=== PATIENT | male | born 1960 | race Two or more races ===

== ENCOUNTER 2019-11-19 05:41 | Day surgery (SDC) | payer OTHER ==
--- NOTE | 2019-11-18 14:32 | Pre-Procedure Note/Attestation ---
Pre-Procedure Note/Attestation Complete Prior to Procedure Planned Procedure: bilateral Procedure Narrative: 1. Septoplasty 2. Submucous resection right inferior turbinate 3. Submucous resection left inferior turbinate Indications for Procedure Pre-Operative Diagnosis: Nasal airway obstruction Attestation I attest that I discussed the nature of the procedure; its benefits; risks and complications; and alternatives (and the risks and benefits of such alternatives), prior to the procedure, with the patient (or the patient's legal uniforms sales representative). I attest that, if there was a reasonable possibility of needing a blood transfusion, the patient (or the patient's legal uniforms sales representative) was given the [facility] standardized written summary, pursuant to the [place] [employer] Blood Safety Act ([place] Health and Safety Code # 1645, as amended). I attest that I re-evaluated the patient just prior to the surgery and that there has been no change in the patient's H&P by Dr. Krystian Tracy and reviewed by me. No sig. changes and stable for surgery. Elder Cancino MD Nov 18, 2019 14:32
--- NOTE | 2019-11-18 14:34 | Brief Operative Note ---
Immediate Post Operative Note Operative Note Chief Complaint: Nasal airway obstruction Pre-op Diagnosis: Nasal airway obstruction Procedure: 1. Septoplasty 2. Submucous resection right inferior turbinate 3. Submucous resection left inferior turbinate Post-op Diagnosis: same as pre-op Surgeon: Dr. Elder Cancino Site Inspector: none Additional Surgeons: none Anesthesiologist: Luis Coates MD Anesthesia: general Specimen: none Complications: none Condition: stable Fluids: D5LR Estimated Blood Loss: volume - 25 cc Drains: none Packing: Sino-nasal gel Tourniquet time: 0 Implant(s) used?: No Elder Cancino MD Nov 18, 2019 14:34
--- NOTE | 2019-11-18 14:37 | Discharge Instructions ---
Discharge Instructions Discharge Instructions Follow up with: Dr. Cancino next week at his [facility] Diet: regular Resume Normal Activity?: No Activity: light activity Pneumonia Vaccine: pt refused vaccine Influenza Vaccine (Nov to Apr): pt refused vaccine Follow Up Orders Pt has printed instructions reviewed and given to him at his pre op visit last week. Return to Work/School on: Dec 03, 2019 Special Instructions ice to face x 48 hours For Surgical Patients Dressing Care: may change May shower: Yes For Congestive Heart Failure Reminder Report to your physician any weight gain of 5 pounds or more in one week. Elder Cancino MD Nov 18, 2019 14:37
[2019-11-19] VITALS (10 sets, daily range): BP systolic 123–138; BP diastolic 78–89
[~2019-11-19] VITALS: Ht 177.8 cm; Wt 79.4 kg
[~2019-11-19 05:41] MED LIST: AMLODIPINE BESY10 MG ORAL; AMOXICILLIN500 MG ORAL; EDARBI80 MG ORAL; GLYXAMBI 10 MG1 EACH PO; JANUMET XR 1001 EACH ORAL; NORCO 5-325 TA1 EAC1 ORAL
[2019-11-19] MEDS ORDERED: Cocaine HCl 4% 4ml vial TOPIC ONE (07:10)
[2019-11-19] MEDS ORDERED: EPINEPHrine 1mg/1ml Amp ONE (07:10)
[2019-11-19] MEDS ORDERED: Lidocaine 1% 10mg/ml/Epi 0.005mg/ml 30ml vial INJ ONE (07:11)
[2019-11-19] MEDS ORDERED: Bupivacaine 0.5% Inj 30 ml vial INJ ONE (07:11)
[2019-11-19] MEDS ORDERED: ceFAZolin sod 1 GM in D5W 55 ML IVPB ONE (07:15)
--- NOTE | 2019-11-19 07:27 | Anethesia Preoperative Eval ---
Anesthesia Pre-op PMH/ROS General Date of Evaluation: Nov 19, 2019 Time of Evaluation: 07:21 Anesthesiologist: Aminata ASA Score: ASA 3 Mallampati Score Class I : Soft palate, uvula, fauces, pillars visible Class II: Soft palate, uvula, fauces visible Class III: Soft palate, base of uvula visible Class IV: Only hard plate visible Mallampati Classification: Class II Surgeon: Julita Diagnosis: Nasal Deformity Surgical Procedure: Septoplasty, SMR Turbinates Anesthesia History: none Family History: no anesthesia problems Allergies: Coded Allergies: No Known Allergies (Unverified , 11/15/19) Medications: see eMAR Patient NPO?: Yes Past Medical History Cardiovascular: Reports: HTN Endocrine: Reports: DM PSxH Narrative: R CTR Back SX, RIHR Anesthesia Pre-op Phys. Exam Physician Exam Last Vital Signs Date Time Temp Pulse Resp B/P (MAP) Pulse Ox O2 Delivery O2 Flow Rate FiO2 11/19/19 06:08 97.8 62 18 132/89 96 Room Air Constitutional: NAD Neurologic: CN 2-12 intact Cardiovascular: RRR Respiratory: CTA Gastrointestinal: S/NT/ND Airway Exam Mallampati Score: Class II MO: full ROM: full Teeth: missing, intact Anesthesia Pre-op A/P Labs Chemistry Test 11/19/19 06:22 POC Whole Blood Glucose 127 MG/DL (74-106) H Risk Assessment & Plan Assessment: ASA 3 Plan: GA, SED Status Change Before Surgery: No Pre-Antibiotics Dru Gram Ancef IV Given Within 1 Hr of Incision: Yes Time Given: 07:46 Luis Coates MD Nov 19, 2019 07:27
[2019-11-19] MEDS ORDERED: Lidocaine 1% MPF 10mg/ml 5ml ONE (07:29)
[2019-11-19] MEDS ORDERED: LORazepam Inj 2mg/ml 1ml IV PRN (07:30)
[2019-11-19] MEDS ORDERED: Midazolam 2mg/2ml Inj IVP PRN (07:30)
[2019-11-19] MEDS ORDERED: LR 1000ml 1,000 ML IVLG SCH (07:30)
[2019-11-19] MEDS ORDERED: Sterile Water Irrig 1000ml IRRIG ONE (07:30)
[2019-11-19] MEDS ORDERED: fentaNYL 100 mcg/2 mL IV ONE (07:30)
[2019-11-19] MEDS ORDERED: Atropine Sulfate 0.4mg/ml inj IVP PRN (07:30)
[2019-11-19] MEDS ORDERED: NS Irrig 1000ml ONE (07:30)
[2019-11-19] MEDS ORDERED: Hydromorphone 0.5mg/0.5ml inj IVP PRN (07:30)
[2019-11-19] MEDS ORDERED: HYDROcodone/Acetamin 5/325 tab ORAL PRN ×2 (07:30→08:45)
[2019-11-19] MEDS ORDERED: Labetalol 5mg/ml 20ml vial IV PRN (07:30)
[2019-11-19] MEDS ORDERED: Ketorolac 30mg Inj IV PRN ×2 (07:30)
[2019-11-19] MEDS ORDERED: fentaNYL 100 mcg/2 mL IV PRN (07:30)
[2019-11-19] MEDS ORDERED: oxyCODONE HCL/Acetaminophen 5/325mg ORAL PRN (07:30)
[2019-11-19] MEDS ORDERED: Meperidine 25mg/0.5ml Inj (FOR RIGORS ONLY) IV PRN (07:30)
[2019-11-19] MEDS ORDERED: LR 1000ml ONE (07:30)
[2019-11-19] MEDS ORDERED: propofoL 1,000mg/100ml IV ONE (07:30)
[2019-11-19] MEDS ORDERED: DiphenhydrAMINE 50mg/ml Inj IVP PRN (07:30)
[2019-11-19] MEDS ORDERED: Acetaminophen (Non formulary) 100 ML IV ONE (07:30)
[2019-11-19] MEDS ORDERED: HYDROcodone/Acetamin 7.5/325 tab ORAL PRN (07:30)
[2019-11-19] MEDS ORDERED: Metoclopramide 10mg/2ml Inj IVP PRN ×2 (07:30→08:45)
[2019-11-19] MEDS ORDERED: Lidocaine 1% Plain 30 ml INJ ONE (07:35)
--- NOTE | 2019-11-19 08:32 | Immediate Post-Op Evaluation ---
Immediate Post-Op Evalulation Immediate Post-Op Evalulation Procedure: Septoplasty, SMR Turbinates Date of Evaluation: Nov 19, 2019 Time of Evaluation: 08:44 IV Fluids: 500 LR Blood Products: 0 Estimated Blood Loss: 25 Urinary Output: 0 Blood Pressure Systolic: 132 Blood Pressure Diastolic: 85 Pulse Rate: 78 Respiratory Rate: 16 O2 Sat by Pulse Oximetry: 99 Temperature (Fahrenheit): 97.5 Pain Score (1-10): 2 Nausea: No Vomiting: No Complications 0 Patient Status: awake, reacts, patent, extubated, none Hydration Status: adequate Dru Gram Ancef IV Given Within 1 Hr of Incision: Yes Time Given: 07:46 Luis Coates MD Nov 19, 2019 08:32
--- NOTE | 2019-11-19 08:33 | 48 Hour Post Anesthesia Eval ---
Post Anesthesia Evaluation Procedure: Septoplasty, SMR Turbinates Date of Evaluation: Nov 19, 2019 Time of Evaluation: 10:54 Blood Pressure Systolic: 133 0: 86 Pulse Rate: 71 Respiratory Rate: 18 Temperature (Fahrenheit): 98 O2 Sat by Pulse Oximetry: 99 Airway: patent Nausea: No Vomiting: No Pain Intensity: 2 Hydration Status: adequate Cardiopulmonary Status: Stable Mental Status/LOC: patient returned to baseline Follow-up Care/Observations: 0 Post-Anesthesia Complications: 0 Follow-up care needed: ready to discharge Luis Coates MD Nov 19, 2019 08:33
[2019-11-19] MEDS ORDERED: HYDROmorphone 1mg/ml Carpuject SUBQ PRN (08:45)
--- NOTE | 2019-11-19 10:25 | General Progress Note ---
Progress Note Progress Note ENT postop note 1005 Pt seen in post down post op. Pt is stable, awake and alert, No sig. bleeding. Mouth, gums and teeth WNL-no evidence of trauma as he had noted in previous surgeries elsewhere. Elder Cancino MD Nov 19, 2019 10:25
--- NOTE | 2019-11-19 11:15 | Operative Note - Dictated ---
DATE OF OPERATION: 11/19/2019 SURGEON: Elder Cancino MD. NANNY/HOUSEHOLD MANAGER: None. ANESTHESIOLOGIST: Luis Coates MD. ANESTHESIA: LMA general anesthesia as well as 10 mL 50:50 mixture of 1% lidocaine with 1:100,000 epinephrine and 1% bupivacaine in a 50:50 mixture. Additionally, 5 mL of 5% topical cocaine were placed on four nasal pledgets, two on either nostril accounted for at the end of the case. INDICATION FOR SURGERY: Nasal septal deviation and hypertrophied right and left inferior turbinates causing nasal airway obstruction. He has failed nasal steroids and antihistamines. PREOPERATIVE DIAGNOSES: Nasal septal deviation and hypertrophied right and left inferior turbinates causing nasal airway obstruction. He has failed nasal steroids and antihistamines. POSTOPERATIVE DIAGNOSES: Nasal septal deviation and hypertrophied right and left inferior turbinates causing nasal airway obstruction. He has failed nasal steroids and antihistamines. FINDINGS: Septal deviation, mainly to his right. There was a small spur on the left. There was extensive scar tissue in his septum. PROCEDURE: 1. Septoplasty. 2. Submucous resection of right inferior turbinate. 3. Submucous resection of left inferior turbinate. TECHNIQUE: The patient prepped and draped in usual manner. All agreed as to the procedure and equipment required. Initially, I injected with the aforementioned lidocaine, Marcaine, and epinephrine mixture and the nasal pledgets were placed, two on either nostril after soaking in the 4% cocaine. Initially, I made an incision in the left inferior turbinate with 15 blade. Utilizing a radiofrequency wand, setting of 6 coated with saline gel, two passes 10 seconds each time, and outfractured the left inferior turbinate with a Boies elevator. I turned my attention to the right inferior turbinate. Incision was made anterior-inferior position. Radiofrequency wand coated with saline gel, two passes 10 seconds, each at a setting of 6. I then outfractured with a Boies elevator. I made a [place] incision on the right-hand side utilizing a 15 blade. I elevated submucosally and subperiosteally. There was extensive scarring to this tissue. I was able to elevate on the other side of the septum as well keeping the flap intact, again significant scarring. I then proceeded to use an osteotome to remove the vomer on the right hand side. It was straight medium non guarded size. I then fractured the left vomer with the same osteotome, but did not remove it. I used an Teto forceps to put it back to the midline. I then closed the [place] incision with a 4-0 plain suture x1. Please note that at the end of the case, I could put my pinky finger through both nostrils or the equivalent of the butter knife turning it 360 degrees. Sinonasal gel was placed in the nose, one syringe between the two sides, divided equally. Mustache dressing placed. COUNTS: Sponge and needle count was correct. ESTIMATED BLOOD LOSS: 25 mL. COMPLICATIONS: None. DRAINS: None. The patient was extubated, stable in the operating room prior to transfer to the recovery room. I saw him 15 minutes later in the recovery room and he was doing well. Elder Cancino M.D. DR: ROSY JOB#: [id number] CC:
== END 2019-11-19 10:30 | disposition home or self-care (01) ==
LOC: SUR 05:41
DX: J34.2 Deviated nasal septum (principal); J34.3 Hypertrophy of nasal turbinates; E11.9 Type 2 diabetes mellitus without complications; I10 Essential (primary) hypertension
CPT/HCPCS: 30140; 30520; 82962; 94003; C9046; J0131; J0690; J2001; J2250; J2405; J2704; J3010; J3490; J7120; U0002; 94150